=== PATIENT | male | born 1980 ===

== ENCOUNTER 2024-10-25 23:02 | Emergency (ER) | payer OTHER ==
[2024-10-25] MEDS: ACETAMINOPHEN TAB 325 MG TAB PO STA (23:53)
--- NOTE | 2024-10-25 23:53 | ED ---
General Adult HPI - General Chief complaint: Psychiatric Symptoms Stated complaint: Psychiatric symptoms Time Seen by Provider: 10/25/24 23:05 Source: police, RN/MD, RN notes reviewed, old records reviewed Mode of arrival: EMS Limitations: language barrier - History of Present Illness Initial comments: 44-year-old male presenting for medical evaluation. Patient was picked up at the [facility] border. He will be detained by customs. While he was being interviewed he was told that he would be detained and the patient immediately stopped speaking and had generalized shaking. Patient attempted to flail on the forearm there was no injury reported and officers were able to protect the patient. I was able to obtain a Beninese-speaking dealer card room and ask questions of the patient but he refuses to respond. Patient given multiple attempts with a dealer card room to respond to questioning about medical and psychiatric history as well as his current situation but patient refuses. Review of Systems ROS Statement: Those systems with pertinent positive or pertinent negative responses have been documented in the HPI. ROS Other: All systems not noted in ROS Statement are negative. Past Medical History History of Any Multi-Drug Resistant Organisms: Unobtainable Past Psychological History: Unable to Obtain Smoking Status: Unknown if ever smoked Past Alcohol Use History: Unable to Obtain Past Drug Use History: Unable to Obtain General Exam Limitations: language barrier General appearance: alert, in no apparent distress, anxious Head exam: Present: atraumatic, normocephalic Eye exam: Present: normal appearance, PERRL Neck exam: Present: normal inspection. Absent: tenderness, meningismus Respiratory exam: Present: normal lung sounds bilaterally. Absent: respiratory distress, wheezes Cardiovascular Exam: Present: regular rate, normal rhythm GI/Abdominal exam: Present: soft. Absent: distended, tenderness, guarding Extremities exam: Present: normal inspection, normal capillary refill Neurological exam: Absent: alert, oriented X3, motor sensory deficit Psychiatric exam: Present: anxious Skin exam: Present: warm, dry, intact, normal color Course Vital Signs 10/25/24 23:06 Temperature 97.8 F Pulse Rate 78 Respiratory 18 Rate Blood Pressure 132/81 O2 Sat by Pulse 100 Oximetry Medical Decision Making - Medical Decision Making Was pt. sent in by a medical professional or institution (, PA, SENIOR TABLEAU DEVELOPER, urgent care, hospital, or group home...) When possible be specific @ -No Did you speak to anyone other than the patient for history (EMS, parent, family, police, friend...)? What history was obtained from this source @Police and [employer] Did you review nursing and triage notes (agree or disagree)? Why? @ -I reviewed and agree with nursing and triage notes Were old charts reviewed (outside hosp., previous admission, EMS record, old EKG, old radiological studies, urgent care reports/EKG's, group home records)? Report findings @ -No old charts were reviewed Differential Mental Health Depression, anxiety, bipolar, psychosis, schizophrenia, borderline personality, situational depression, adjustment disorder, behavioral disorder, brain tumor, malingering, substance abuse, encephalopathy, medication reaction, dementia, hypothyroidism, degenerative neurologic disorder, lupus.... This is not meant to be all-inclusive list EKG interpreted by me (3pts min.). @ -As above X-rays interpreted by me (1pt min.). @ -None done CT interpreted by me (1pt min.). @ -None done U/S interpreted by me (1pt. min.). @ -None done What testing was considered but not performed or refused? (CT, X-rays, U/S, labs)? Why? @ -None What meds were considered but not given or refused? Why? @ -None Did you discuss the management of the patient with other professionals (professionals i.e. , PA, SENIOR TABLEAU DEVELOPER, lab, RT, psych nurse, social and human services assistant, cosmetic consultant, teacher, state wildlife officer, transplant case manager)? Give summary @ -No Was smoking cessation discussed for >3mins.? @ -No Was critical care preformed (if so, how long)? @ -No Were there social determinants of health that impacted care today? How? (Homelessness, low income, unemployed, alcoholism, drug addiction, transportation, low edu. Level, literacy, decrease access to med. care, halfway, rehab)? @ -No Was there de-escalation of care discussed even if they declined (Discuss DNR or withdrawal of care, Hospice)? DNR status @ -No What co-morbidities impacted this encounter? (DM, HTN, Smoking, COPD, CAD, Cancer, CVA, ARF, Chemo, Hep., AIDS, mental health diagnosis, sleep apnea, morbid obesity)? @ -[Unknown past medical history. Was patient admitted / discharged? Hospital course, mention meds given and route, prescriptions, significant lab abnormalities, going to OR and other pertinent info. @ -44-year-old male who became anxious and refused to speak after he was told he was being detained. He is not compliant with the history and refuses to answer. Approximately 20 minutes patient does be and responding normally and is compliant with history and physical. He is evaluated through a Beninese-speaking dealer card room. He has no acute complaints at this time. He has no reported medical history or medication allergies. He will be discharged in stable medical condition into the [facility] of [facility]. Undiagnosed new problem with uncertain prognosis? @ -No Drug Therapy requiring intensive monitoring for toxicity (Heparin, Nitro, Insulin, Cardizem)? @ -No Were any procedures done? @ -No Diagnosis/symptom? @ -Situational depression Acute, or Chronic, or Acute on Chronic? @ acute Uncomplicated (without systemic symptoms) or Complicated (systemic symptoms)? @ -Default Side effects of treatment? @ -No Exacerbation, Progression, or Severe Exacerbation? @ -No Poses a threat to life or bodily function? How? (Chest pain, [place], [place], pneumonia, PE, COPD, DKA, ARF, appy, cholecystitis, CVA, Diverticulitis, Homicidal, Suic idal, threat to staff... and all critical care pts) @ -No Disposition Clinical Impression: Acute anxiety, Situational depression Disposition: HOME SELF-CARE Condition: Fair Instructions (If sedation given, give patient instructions): Anxiety (ED) Is patient prescribed a controlled substance at d/c from ED?: No Referrals: None,Stated [Primary Care Provider] - 1-2 days Time of Disposition: 23:54
[2024-10-26 00:04] VITALS: BP 117/60; PULSE 72; RESP 16; TEMP 98.7
== END 2024-10-26 00:07 | disposition home or self-care (01) ==
LOC: EC 23:02
DX: F43.21 Adjustment disorder with depressed mood (principal); F41.9 Anxiety disorder, unspecified
CPT/HCPCS: 99285

== ENCOUNTER 2024-10-26 07:20 | Emergency (ER) | payer SELFPAY ==
[2024-10-26 07:36] VITALS: TEMP 98
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
[2024-10-26 08:03] VITALS: RESP 16
[2024-10-26 08:17] LABS: Basophils % (A) 1 %; Eosinophils # (A) 0.1 k/uL (0-0.7); Eosinophils % (A) 1 %; HCT 44.7 % (39.0-53.0); Lymphocytes # (A) 1.7 k/uL (1.0-4.8); Lymphocytes % (A) 29 %; MCH 30.1 pg (25.0-35.0); MCHC 33.5 g/dL (31.0-37.0); MCV 89.9 fL (80.0-100.0); Mean Platelet Volume 7.7; Monocytes # (A) 0.2 k/uL (0-1.0); Monocytes % (A) 4 %; Neutrophils # (A) 3.7 k/uL (1.3-7.7); Neutrophils % (A) 64 %; Platelet Count 226 k/uL (150-450); RBC 4.97 m/uL (4.30-5.90); RDW 11.8 % (11.5-15.5); WBC 5.8 k/uL (3.8-10.6)
[2024-10-26 08:32] LABS: ALT 16 U/L (4-49); AST 21 U/L (17-59); African American GFR (CKD) >90 (>60 ml/min/1.73 sqM); Albumin 4.9 g/dL (3.5-5.0); Alkaline Phosphatase 51 U/L (38-126); Anion Gap 9 mmol/L; Blood Urea Nitrogen 10 mg/dL (9-20); Calcium 9.9 mg/dL (8.4-10.2); Carbon Dioxide 27 mmol/L (22-30); Chloride 104 mmol/L (98-107); Glucose 95 mg/dL (74-99); Lipase 78 U/L (23-300); Non-African American GFR(CKD) >90 (>60 ml/min/1.73 sqM); Potassium 3.8 mmol/L (3.5-5.1); Sodium 140 mmol/L (137-145); Total Bilirubin 1.5 mg/dL (0.2-1.3); Total Protein 7.6 g/dL (6.3-8.2)
[2024-10-26] MEDS: KETOROLAC 15 MG/ML 1 ML VIAL IM STA (08:56)
[2024-10-26] MEDS: KETOROLAC 15 MG/ML 1 ML VIAL IVP STA (08:56)
[2024-10-26 09:00] VITALS: BP 129/83; PULSE 84
== END 2024-10-26 09:00 | disposition home or self-care (01) ==
LOC: EC 07:20
DX: R51.9 Headache, unspecified (principal); Z02.79 Encounter for issue of other medical certificate
CPT/HCPCS: 36415; 80053; 83690; 85025; 70450; 99284; 96372; J1885

== ENCOUNTER 2024-10-26 11:26 | Inpatient (IN) | payer SELFPAY ==
[2024-10-26 13:21] LABS: Basophils % (A) 0 %; Eosinophils % (A) 0 %; HGB 15.4 gm/dL (13.0-17.5); Lymphocytes # (A) 1.9 k/uL (1.0-4.8); Lymphocytes % (A) 26 %; MCV 88.7 fL (80.0-100.0); Mean Platelet Volume 7.7; Monocytes # (A) 0.3 k/uL (0-1.0); Monocytes % (A) 4 %; Neutrophils % (A) 68 %; Platelet Count 227 k/uL (150-450); RBC 4.96 m/uL (4.30-5.90); RDW 11.7 % (11.5-15.5); WBC 7.3 k/uL (3.8-10.6)
[2024-10-26 13:37] VITALS: RESP 16
[2024-10-26] MEDS: SODIUM CHLORIDE 0.9% 1,000 ML IV ONE (13:37)
[2024-10-26] MEDS: LORazepam 2 MG/ML INJ IV STA (13:38)
[2024-10-26 13:48] LABS: ALT 16 U/L (4-49); AST 21 U/L (17-59); African American GFR (CKD) >90 (>60 ml/min/1.73 sqM); Albumin 4.9 g/dL (3.5-5.0); Alkaline Phosphatase 57 U/L (38-126); Anion Gap 12 mmol/L; Blood Urea Nitrogen 10 mg/dL (9-20); Calcium 10.6 mg/dL (8.4-10.2); Carbon Dioxide 23 mmol/L (22-30); Chloride 104 mmol/L (98-107); Glucose 91 mg/dL (74-99); Magnesium 2.2 mg/dL (1.6-2.3); Non-African American GFR(CKD) >90 (>60 ml/min/1.73 sqM); Potassium 3.7 mmol/L (3.5-5.1); Sodium 139 mmol/L (137-145); Total Bilirubin 1.4 mg/dL (0.2-1.3); Total Protein 7.7 g/dL (6.3-8.2)
--- NOTE | 2024-10-26 14:05 | ED ---
General Adult HPI - General Chief complaint: Anxiety Stated complaint: seizure Time Seen by Provider: 10/26/24 11:35 Source: patient, police, EMS, RN notes reviewed Mode of arrival: EMS Limitations: language barrier - History of Present Illness Initial comments: 44-year-old male [facility]. Patient reportedly was sitting over the ground and started convulsing which lasted 4 to 5 minutes. He states he was foaming at his mouth he was very rigid and unresponsive to them. He then stopped and was very confused until EMS arrived which was several minutes later. He has no history of seizures he did have a CT earlier this morning because of a headache which was negative. Patient is very anxious as he is detained by [facility]. Patient states he has some family history of seizures. He denies any alcohol use or any alcohol withdrawal symptoms. Patient denies any illicit drug use. He states he used to be on anxiety medication. - Related Data Allergies Allergy/AdvReac Type Severity Reaction Status Date / Time No Known Allergies Allergy Verified 10/26/24 07:36 Review of Systems ROS Statement: Those systems with pertinent positive or pertinent negative responses have been documented in the HPI. ROS Other: All systems not noted in ROS Statement are negative. Past Medical History Additional Past Medical History / Comment(s): unknown History of Any Multi-Drug Resistant Organisms: Unobtainable Additional Past Surgical History / Comment(s): unknown Past Psychological History: Unable to Obtain Smoking Status: Unknown if ever smoked Past Alcohol Use History: Unable to Obtain Past Drug Use History: Unable to Obtain General Exam Limitations: language barrier General appearance: alert, in no apparent distress Head exam: Present: atraumatic, normocephalic, normal inspection Eye exam: Present: normal appearance, PERRL, EOMI. Absent: scleral icterus, conjunctival injection, periorbital swelling ENT exam: Present: normal exam, normal oropharynx, mucous membranes moist Neck exam: Present: normal inspection, full ROM. Absent: tenderness, meningismus, lymphadenopathy Respiratory exam: Present: normal lung sounds bilaterally. Absent: respiratory distress, wheezes, rales, rhonchi, stridor Cardiovascular Exam: Present: regular rate, normal rhythm, normal heart sounds. Absent: systolic murmur, diastolic murmur, rubs, gallop, clicks Extremities exam: Present: normal inspection, full ROM, normal capillary refill. Absent: tenderness, pedal edema, joint swelling, calf tenderness Neurological exam: Present: alert, oriented X3, CN II-XII intact, reflexes normal. Absent: motor sensory deficit Skin exam: Present: warm, dry, intact, normal color. Absent: rash Course Vital Signs 10/26/24 13:36 Pulse Rate 69 Respiratory 16 Rate Blood Pressure 111/68 O2 Sat by Pulse 98 Oximetry EKG Findings - EKG Comments: EKG Findings:: EKG performed at 12: 44 sinus rhythm rate of 73 MS 152 QRS 91 QT/QTc 360/390 - EKG Results: EKG: interpreted by ZOHAIB Medical Decision Making - Medical Decision Making Was pt. sent in by a medical professional or institution (, PA, LEGAL OFFICER, urgent care, hospital, or skilled nursing...) When possible be specific @ -No Did you speak to anyone other than the patient for history (EMS, parent, family, police, friend...)? What history was obtained from this source @Custom[employer] providing history of current present illness Did you review nursing and triage notes (agree or disagree)? Why? @ -I reviewed and agree with nursing and triage notes Were old charts reviewed (outside hosp., previous admission, EMS record, old EKG, old radiological studies, urgent care reports/EKG's, skilled nursing records)? Report findings @ -[Review CT of the brain from this morning showed no acute process Differential Diagnosis (chest pain, altered mental status, abdominal pain women, abdominal pain men, vaginal bleeding, weakness, fever, dyspnea, syncope, headache, dizziness, GI bleed, back pain, seizure, CVA, palpatations, mental he alth, musculoskeletal)? @ -Differential Seizure: Recurrent seizure disorder, febrile seizure, alcohol withdrawal, stimulants, meningitis, encephalitis, intercranial hemorrhage, intracranial tumor, stroke, eclampsia, thyrotoxicosis, hypocalcemia, hyponatremia, hypernatremia, hypomagnesemia, psychogenic, this is not meant to be an all-inclusive list. EKG interpreted by me (3pts min.). @ -As above X-rays interpreted by me (1pt min.). @ -None done CT interpreted by me (1pt min.). @ -None done U/S interpreted by me (1pt. min.). @ -None done What testing was considered but not performed or refused? (CT, X-rays, U/S, labs)? Why? @ -None What meds were considered but not given or refused? Why? @ -None Did you discuss the management of the patient with other professionals (professionals i.e. , PA, LEGAL OFFICER, lab, RT, psych nurse, social media intern, makeup sales consultant, teacher, youth corrections officer, case assembler)? Give summary @Dr. Gonzalez for admission Was smoking cessation discussed for >3mins.? @ -No Was critical care preformed (if so, how long)? @ -No Were there social determinants of health that impacted care today? How? (Homelessness, low income, unemployed, alcoholism, drug addiction, transportation, low edu. Level, literacy, decrease access to med. care, care home, rehab)? @ -No Was there de-escalation of care discussed even if they declined (Discuss DNR or withdrawal of care, Hospice)? DNR status @ -No What co-morbidities impacted this encounter? (DM, HTN, Smoking, COPD, CAD, Cancer, CVA, ARF, Chemo, Hep., AIDS, mental health diagnosis, sleep apnea, morbid obesity)? @ -None Was patient admitted / discharged? Hospital course, mention meds given and route, prescriptions, significant lab abnormalities, going to OR and other pertinent info. @ -Admitted for rule out seizure, seizure-like activity EEG, neurology consult. Undiagnosed new problem with uncertain prognosis? @ -No Drug Therapy requiring intensive monitoring for toxicity (Heparin, Nitro, Insulin, Cardizem)? @ -No Were any procedures done? @ -No Diagnosis/symptom? @ -Seizure-like activity Acute, or Chronic, or Acute on Chronic? @ -Acute Uncomplicated (without systemic symptoms) or Complicated (systemic symptoms)? @ -complicated Side effects of treatment? @ -No Exacerbation, Progression, or Severe Exacerbation? @ -No Poses a threat to life or bodily function? How? (Chest pain, [place], [place], pneumonia, PE, COPD, DKA, ARF, appy, cholecystitis, CVA, Diverticulitis, Homicidal, Suicidal, threat to staff... and all critical care pts) @ -No - Lab Data Result diagrams: 10/26/24 13:00 10/26/24 13:00 Lab Results 10/26/24 10/26/24 10/26/24 Range/Units 13:00 13:00 13:00 WBC 7.3 (3.8-10.6) k/uL RBC 4.96 (4.30-5.90) m/uL Hgb 15.4 (13.0-17.5) gm/dL Hct 44.0 (39.0-53.0) % MCV 88.7 (80.0-100.0) fL MCH 31.0 (25.0-35.0) pg MCHC 35.0 (31.0-37.0) g/dL RDW 11.7 (11.5-15.5) % Plt Count 227 (150-450) k/uL MPV 7.7 Neutrophils % 68 % Lymphocytes % 26 % Monocytes % 4 % Eosinophils % 0 % Basophils % 0 % Neutrophils # 5.0 (1.3-7.7) k/uL Lymphocytes # 1.9 (1.0-4.8) k/uL Monocytes # 0.3 (0-1.0) k/uL Eosinophils # 0.0 (0-0.7) k/uL Basophils # 0.0 (0-0.2) k/uL Sodium 139 (137-145) mmol/L Potassium 3.7 (3.5-5.1) mmol/L Chloride 104 (98-107) mmol/L Carbon Dioxide 23 (22-30) mmol/L Anion Gap 12 mmol/L BUN 10 (9-20) mg/dL Creatinine 0.62 L (0.66-1.25) mg/dL Est GFR (CKD-EPI)AfAm >90 (>60 ml/min/1.73 sqM) Est GFR (CKD-EPI)NonAf >90 (>60 ml/min/1.73 sqM) Glucose 91 (74-99) mg/dL Plasma Lactic Acid Tex 1.5 (0.7-2.0) mmol/L Calcium 10.6 H (8.4-10.2) mg/dL Magnesium 2.2 (1.6-2.3) mg/dL Total Bilirubin 1.4 H (0.2-1.3) mg/dL AST 21 (17-59) U/L ALT 16 (4-49) U/L Alkaline Phosphatase 57 (38-126) U/L Total Protein 7.7 (6.3-8.2) g/dL Albumin 4.9 (3.5-5.0) g/dL Disposition Clinical Impression: Seizures, Anxiety Disposition: ADMITTED IP TO [facility] Instructions (If sedation given, give patient instructions): Generalized Anxiety Disorder (ED) Referrals: None,Stated [Primary Care Provider] - 1-2 days
[2024-10-26] MEDS ORDERED: NALOXONE 0.4 MG/ML 1 ML VIAL IV PRN (14:14)
[2024-10-26 14:15] LABS: Amorphous Sediment,Urine Few /hpf; Appearance,Urine Cloudy (Clear); Bilirubin,Urine Negative (Negative); Blood,Urine Negative (Negative); Color,Urine Yellow; Glucose,Urine (UA) Negative (Negative); Ketones,Urine Trace (Negative); Leukocyte Esterase,Urine Small (Negative); Mucus,Urine Few /hpf; Nitrite,Urine Negative (Negative); Protein,Urine Negative (Negative); RBC,Urine 1 /hpf (0-5); Specific Gravity,Urine 1.017 (1.001-1.035); WBC,Urine 4 /hpf (0-5)
[2024-10-26] MEDS ORDERED: LORazepam 2 MG/ML INJ IV PRN (14:16)
[2024-10-26 14:20] LABS: Amphetamine Screen,Urine Not Detected (NotDetected); Barbiturate Screen,Urine Not Detected (NotDetected); Benzodiazepines Screen,Urine Not Detected (NotDetected); Cocaine Screen,Urine Not Detected (NotDetected); Methadone Screen, Urine Not Detected (NotDetected); Opiate Screen,Urine Not Detected (NotDetected); Oxycodone Screen, Urine Not Detected (NotDetected); Phencyclidine Screen,Urine Not Detected (NotDetected); Tricyclic Antidepressant,Urine Not Detected (NotDetected); Urn Cannabinoid Scrn Not Detected (NotDetected)
[2024-10-26 16:07] VITALS: BP 116/71; PULSE 77
[2024-10-26] MEDS: ACETAMINOPHEN TAB 325 MG TAB PO PRN (17:16)
--- NOTE | 2024-10-26 18:00 | P.CNNES ---
History of Present Illness Consult date: 10/26/24 Requesting physician: Pantera Tapia Reason for Consult: seizure History of Present Illness: This is a 44-year-old gentleman presents emergency department on 10/26/2024 for possible seizure. Virtual translation was used since patient is a speaking and does not speak Icelandic. Patient is accompanied to with [employer]. It seems that the patient had shaking-like episode with some foaming around the mouth. Per the ED team the patient started convulsing left and lasted 4 to 5 minutes and it happened when the patient was detained and supposedly was rigid unresponsive and was very confused until EMS arrived for several minutes. Seems that the patient is very anxious that he is detained by [employer] and that is when his seizure-like activity started. According to the Patrol He Was Responding during the Episode When He Had the Seizure. Patient Stated That He Had Seizure in the past and His Country in [place] in the past after Being Beating up Back Home and He Was Evaluated Back Home and Was Told to Avoid Any Distress and Was Not Placed on Any Medication. Seems that he had 2 seizure episodes while in [place] and again with he stated it was felt due to anxiety and was never placed on any medication. He stated that he is having multiple pain throughout his body in his head elbows knees. His headache he described as intense and its over the bilateral frontal focal deficit. Also with headache he was notified to avoid distress. Some of the workup during this hospital visit consisted of: CBC with differential is unremarkable Chemistry panel sodium, glucose, AST ALT, magnesium are within normal limits Calcium is 10.6. Plasma lactic acid vein is 1.5. UDS is nondetected Seems the patient had a CT of the head earlier today and it is reported as no acute intracranial process. Review of Systems Limited but as per HPI. Past Medical History Additional Past Medical History / Comment(s): unknown History of Any Multi-Drug Resistant Organisms: Unobtainable Additional Past Surgical History / Comment(s): unknown Smoking Status: Never smoker Medications and Allergies Home Medications Medication Instructions Recorded Confirmed Type No Known Home Medications 10/26/24 10/26/24 History Allergies Allergy/AdvReac Type Severity Reaction Status Date / Time No Known Allergies Allergy Verified 10/26/24 15:36 Physical Examination - Vital Signs Vital Signs: Vital Signs Pulse Resp BP Pulse Ox 10/26/24 16:06 77 16 116/71 98 10/26/24 14:41 66 16 125/79 98 10/26/24 13:36 69 16 111/68 98 Intake and Output 10/26/24 10/26/24 10/26/24 06:59 14:59 22:59 Other: Weight 63.503 kg 63.503 kg General: Lying in bed and does not appear in acute distress. Neuro: I used virtual translation help for examination The patient is awake alert oriented to self place. He is following simple commands. No aphasia from limited language. Pupils are round equal reactive to light. The pupils are round 4 mm bilaterally. No facial weakness. No dysarthria. Tongue is midline moves [id number] with any difficulty The motor: the strength is 5 out of 5. Normal gait. Cerebellar: Normal finger to nose bilaterally. Reflex: Refused because of pain. Results - Laboratory Findings CBC and BMP: 10/26/24 13:00 10/26/24 13:00 Abnormal Lab Findings: Abnormal Labs 10/26/24 10/26/24 13:00 13:32 Creatinine 0.62 L Calcium 10.6 H Total Bilirubin 1.4 H Urine Ketones Trace H Ur Leukocyte Esterase Small H Amorphous Sediment Few H Urine Mucus Few H Assessment and Plan Assessment: This is a 44-year-old gentleman who presents to the emergency department because of seizure-like activity. It seems that he had seizure-like activity back in his country ([place]) as well as chronic headache was told to avoid distress. It seems that he had a seizure-like activity when he was detained and per the [employer] patrol officers they stated that the patient was responding while he had seizure-like activity. Breakthrough seizure and it seems more nonepileptic due to his severe anxiety History of reported seizure in the past and is not on antiepileptic drugs Chronic headache Plan: An EEG is ordered by the ED team is pending Regarding his headache patient stated that his headache resolves when he is not distressed. This is more chronic. Patient was notified that per [place] DMV because of the seizure, to avoid driving for 6 months until seizure-free from the last event, avoid heights, avoid swimming unassisted and using heavy machinery. Recommend seizure precautions seizure pads Will avoid starting the patient on any antiseizure medication since this is felt more nonepileptic. Will wait for the routine EEG Recommend the patient to follow-up with a neurologist as an outpatient within 2 weeks. Will defer the rest of the medical management the primary team and other specialist Thank you for the consultation. Time with Patient: Greater than 30
--- NOTE | 2024-10-27 02:18 | HP ---
HISTORY AND PHYSICAL CHIEF COMPLAINT: Seizure and anxiety. 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 Apparently, the patient was detained and the patient was taken to [facility] twice previously and the patient was apparently an illegal alien. The patient was thought to be dehydrated and the patient apparently had a seizure like symptoms and the patient was admitted for further evaluation and treatment. There is no history of any fever, rigors, or chills at this time. The patient is [place] and does not speak German. PAST MEDICAL HISTORY: From the chart unobtainable. No history of seizures per ER. HOME MEDICATIONS: Tylenol. Dose and rest of medications reviewed. ALLERGIES: None. FAMILY HISTORY: Could not be taken. SOCIAL HISTORY: Could not be taken. REVIEW OF SYSTEMS: Could not be taken. PHYSICAL EXAMINATION: VITAL SIGNS: Pulse is 66, blood pressure 125/70, respirations 16. HEENT: Conjunctivae normal. CARDIOVASCULAR: S1, S2. RESPIRATIONS: Breath sounds diminished at the bases. ABDOMEN: Soft. LEGS: No edema. NERVOUS SYSTEM: The patient is fully conscious. No weakness. Moves all 4 limbs. LABORATORY DATA: UA noted. Otherwise, other labs are noted. ASSESSMENT: 1. Possible seizures versus pseudoseizures. 2. Dehydration. 3. History of headaches. 4. Possible anxiety. RECOMMENDATIONS AND DISCUSSION: This is a 44-year-old gentleman, who presented with multiple complex medical issues. We will monitor the patient closely. Continue the current medications. Continue with IV fluids, hydration. Repeat labs. The current labs are normal. Otherwise, I would also recommend EEG, neurology consultation, neuro checks, and continue to monitor. Prognosis guarded. Further recommendations to follow. MMODL / IJN: [id number] /
[2024-10-27] MEDS ORDERED: PANTOPRAZOLE 40 MG TABLET PO SCH (07:30)
--- NOTE | 2024-10-27 21:00 | DS ---
DISCHARGE SUMMARY FINAL DIAGNOSES: 1. Possible seizures versus pseudoseizures. 2. Dehydration. 3. History of headaches. 4. Possible anxiety. DISCHARGE DISPOSITION: The patient left the hospital against medical advice. HISTORY OF PRESENT ILLNESS: This is a 44-year-old gentleman with a past medical history of multiple medical problems, who was brought to the hospital by [employer]. The patient was recommended for observation, but however [employer] informed that the patient will be detained after discharge and the patient left the hospital against medical advice. Please refer to the consultation notes and progress note for further details. MMODL / IJN: [id number] /
== END 2024-10-26 17:41 | disposition left against medical advice (07) | DRG 101 ==
LOC: EC 11:26 → 6NMEDSUR 14:15 → OBSVTOIN 14:15 → 5NMEDONC 15:11
PROVIDERS: ADMIT Hospitalist; ATTEND Hospitalist
DX: G40.89 Other seizures (principal); E86.0 Dehydration; F41.9 Anxiety disorder, unspecified; Z53.29 Procedure and treatment not carried out because of patient's decision for other reasons; R51.9 Headache, unspecified
CPT/HCPCS: 36415; 80053; 80306; 81001; 83605; 83735; 85025; 93005; 96361; 96374; 99285